=== PATIENT | female | born 1980 | race American Indian/Alaskan Native ===

== ENCOUNTER 2017-02-02 15:07 | Emergency (ER) | payer MEDICAID ==
[2017-02-02] MEDS ORDERED: cefOXitin IV 2 gm in Dextrose 2 GM/50 ML BAG IVPB ONE (15:27)
[2017-02-02] MEDS ORDERED: Lactated Ringer's 1,000 ML IV SCH (15:30)
[2017-02-02] MEDS ORDERED: Oxytocin 20 units in LR 0 ML IV ONE ×2 (15:39→16:35)
[2017-02-02] MEDS ORDERED: Sodium Citrate/Citric Acid 15 ml Sol ONE (15:39)
[2017-02-02 16:26] LABS: BASO % 0.1 % (0.0-2.0); EOS # 0.2 K/uL (0.0-0.7); EOS % 1.7 % (0.0-4.0); HEMATOCRIT 31.7 % (34.0-47.0); LYMPH # 2.5 K/uL (1.0-4.3); LYMPH % 22.9 % (20.0-40.0); MEAN CELL VOLUME 86.4 fL (81.0-99.0); MEAN CORPUSCULAR HEMOGLOBIN 29.1 pg (27.0-31.0); MEAN CORPUSCULAR HGB CONC 33.6 g/dL (33.0-37.0); MEAN PLATELET VOLUME 8.3 fL (7.2-11.7); MONO # 0.8 K/uL (0.0-0.8); MONO % 7.2 % (0.0-10.0); RED CELL DISTRIBUTION WIDTH 14.3 % (11.5-14.5); WHITE BLOOD COUNT 10.8 K/uL (4.8-10.8)
[2017-02-02 17:35] LABS: RBC URINE 1 /hpf (0-3); URINE BACTERIA RARE (<OCC); URINE BILIRUBIN NEGATIVE (NEGATIVE); URINE BLOOD NEGATIVE (NEGATIVE); URINE COLOR Yellow (YELLOW); URINE GLUCOSE (UA) NORMAL (Normal); URINE KETONE TRACE mg/dL (NEGATIVE); URINE LEUKOCYTE ESTERASE NEG Leu/uL (Negative); URINE PROTEIN NEGATIVE (NEGATIVE); URINE UROBILINOGEN NORMAL mg/dL (0.2-1.0); WBC URINE < 1 /hpf (0-5)
--- NOTE | 2017-02-02 17:45 | OBDCSUM ---
Datetime: 02/02/2017 17:42 Discharged to, Provider: Home Follow up at, Provider: dr dawn Disch Instr Activity: Normal activity Disch Instr Diet: Regular Discharge Time: 02/02/2017 17:43 Follow up in weeks, Provider: 1day Disch Referrals: None Discharge Comment, Provider: no sex po hyration pttl given f/u in 1day Discharge Diagnosis Prov Other: 36weks preteterm ctxs
== END 2017-02-02 17:42 | disposition home or self-care (01) ==
LOC: C.EROB 15:07 → UNDOADMIN 15:28 → C.4D 15:28 → C.EROB 17:42
DX: O60.03 Preterm labor without delivery, third trimester (principal); Z3A.36 36 weeks gestation of pregnancy
CPT/HCPCS: 81001; 85025; 96372; 99283; J3105; J7120

== ENCOUNTER 2017-02-17 06:13 | Inpatient (IN) | payer MEDICAID ==
[2017-02-17] MEDS ORDERED: cefOXitin IV 2 gm in Dextrose 2 GM/50 ML BAG IVPB ONE ×2 (06:36→07:45)
[2017-02-17 07:10] LABS: BASO % 0.3 % (0.0-2.0); EOS # 0.2 K/uL (0.0-0.7); EOS % 1.7 % (0.0-4.0); HEMOGLOBIN 9.9 g/dL (11.0-16.0); LYMPH % 27.6 % (20.0-40.0); MEAN CELL VOLUME 85.8 fL (81.0-99.0); MEAN CORPUSCULAR HEMOGLOBIN 28.4 pg (27.0-31.0); MEAN CORPUSCULAR HGB CONC 33.1 g/dL (33.0-37.0); MEAN PLATELET VOLUME 8.5 fL (7.2-11.7); MONO # 0.8 K/uL (0.0-0.8); MONO % 7.8 % (0.0-10.0); NEUT # 6.8 K/uL (1.8-7.0); NEUT % 62.6 % (50.0-75.0); NRBC % 0.1 % (0.0-2.0); RBC 3.49 Mil/uL (3.80-5.20); RED CELL DISTRIBUTION WIDTH 14.7 % (11.5-14.5); WHITE BLOOD COUNT 10.8 K/uL (4.8-10.8)
[2017-02-17 07:11] LABS: SQUAMOUS EPITHIAL 4 /hpf (0-5); URINE BACTERIA OCC (<OCC); URINE BILIRUBIN NEGATIVE (NEGATIVE); URINE BLOOD NEGATIVE (NEGATIVE); URINE CLARITY Clear (Clear); URINE COLOR Straw (YELLOW); URINE GLUCOSE (UA) NORMAL (Normal); URINE LEUKOCYTE ESTERASE NEG Leu/uL (Negative); URINE NITRATE NEGATIVE (NEGATIVE); URINE PROTEIN NEGATIVE (NEGATIVE); URINE UROBILINOGEN NORMAL mg/dL (0.2-1.0)
[2017-02-17] MEDS ORDERED: Phenylephrine 10 mg/ml Inj ONE (07:16)
[2017-02-17] MEDS ORDERED: Morphine 1 mg/ml preservative-free Inj(Duramorph) ONE (07:16)
[2017-02-17 07:36] LABS: ALBUMIN 3.2 g/dL (3.5-5.0)
[2017-02-17 07:39] LABS: AST/SGOT 23 U/L (14-36); BLOOD UREA NITROGEN 11 mg/dL (7-17); GFR AFRICAN-AMERICAN > 60; GFR NON-AFRICAN AMERICAN > 60
[2017-02-17 07:40] LABS: ALT/SGPT 18 U/L (9-52); CALCIUM 9.2 mg/dl (8.6-10.4)
[2017-02-17] MEDS ORDERED: Sodium Citrate/Citric Acid 15 ml Sol ONE (07:45)
[2017-02-17] MEDS ORDERED: Oxytocin 20 units in LR 2,000 ML IV ONE (07:46)
--- NOTE | 2017-02-17 13:51 | PCM.SURG1 ---
Surgeon's Initial Post Op Note - Surgeon's Notes Surgeon: Dr Ellis Laboratory Operations Coordinator: Dr Sandoval Type of Anesthesia: Spinal Anesthesia Administered By: Dr Henry Pre-Operative Diagnosis: IUP at 39wks, h/o previous extensive Myomectomy Operative Findings: Live female with BW of 3050gms and scores of 9 and 9 delivered in cephalic presentation with clear amniotic fluid and fundal placenta. There were multinodular fibroids in the uterus with multiple bowel adhesions to the posterior wall of the uterus which was carefully released after the repair of the uterine incision. Both ovaries and Fallopian tubes on either side appeared normal. EBL- 600mls. IVFluid intake- 2200mls. Urine Output- 400mls Post-Operative Diagnosis: 1. Same as Diagnosis. 2. Multinodular fibroid uterus. 3. Multiple bowel adhesions to the posterior wall of the uterus Operation Performed: Primary Section. Release of bowel and pelvic adhesions Specimen/Specimens Removed: Solitary fibroid nodule Estimated Blood Loss: EBL {In ML}: 600 Blood Products Given: N/A Post-Op Condition: Good Date of Surgery/Procedure: 02/17/17 Time of Surgery/Procedure: 09:30
[2017-02-17] MEDS: Simethicone 80 mg Chewtab PO SCH ×3 (14:48→21:58)
[2017-02-17] MEDS: cefOXitin IV 2 gm in Dextrose 2 GM/50 ML BAG IVPB SCH (15:47)
[2017-02-17] MEDS: Lactated Ringer's 1,000 ML IV SCH (16:46)
--- NOTE | 2017-02-17 22:28 | OBDS ---
DELIVERY PERSONNEL Delivery Doctor: Milind Ellis MD Scrub Nurse: Isha Matthews Intern Architect: Arlet Goetz RN Anesthesiologist: ophelia MATERNAL INFORMATION Delivery Anesthesia: Spinal Medications in Delivery: pitocin 20 Estimated Blood Loss (ml): 700 Placenta Cultured: No Maternal Complications: None Provider Comments: Uncomplicated Primary section with delivery of a viable female wi th BW of 3050gms and scores of 9 and 9. Multinodular Fibroids noted . EBL- 600mls LABOR SUMMARY EDC: 02/24/2017 00:00 No. Babies in Womb: 1 Attempted: No Labor Anesthesia: None LABOR INFORMATION Reason for Induction: Not Applicable Oxytocin: N/A Group B Beta Strep: Negative (Annotations: 06/26/2016) Antibiotics # of Doses: 1 Antibiotics Time of Last Dose: 750 Steroids Given: None Reason Steroids Not Administered: Not Applicable MEMBRANES Membranes Rupture Method: Artificial Rupture of Membranes: 02/17/2017 08:26 Length of Rupture (hrs): 0.02 Amniotic Fluid Color: Clear Amniotic Fluid Amount: Moderate Amniotic Fluid Odor: Normal STAGES OF LABOR Stage 3 hrs: 0 Stage 3 min: 1 VAGINAL DELIVERY Episiotomy: None Laceration Extension: N/A Laceration Type: None CSECTION DELIVERY Primary Indication: pc/s Secondary Indication: myomectomy CSection Urgency: Elective CSection Incidence: Primary Labor: No Labor Elective: Elective CSection Incision: Lower Uterine Transverse Uterine Closure: Double-layer closure BABY A INFORMATION Delivery Date/Time: 02/17/2017 08:27 Method of Delivery: Born in Route : No : N/A Forceps: N/A Vacuum Extraction: N/A Shoulder Dystocia : No SHOULDER DYSTOCIA BABY A Infant Delivery Date/Time: 02/17/2017 08:27 PRESENTATION/POSITION BABY A Presentation: Cephalic Cephalic Presentation: Vertex Breech Presentation: N/A PLACENTA INFORMATION BABY A Placenta Delivery Time : 02/17/2017 08:28 Placenta Method of Delivery: Manual Removal Placenta Status: Delivered SCORES BABY A Heart Rate 1 min: >100 bpm Resp Effort 1 min: Good Cry Reflex Irritability 1 min: Cough or Sneeze or Pulls Away Muscle Tone 1 min: Active Motion Color 1 min: Body [place], Extremities Blue Resuscitation Effort 1 min: Tactile Stimulation SCORE 1 MIN: 9 Heart Rate 5 min: >100 bpm Resp Effort 5 min: Good Cry Reflex Irritability 5 min: Cough or Sneeze or Pulls Away Muscle Tone 5 min: Active Motion Color 5 min: Body [place], Extremities Blue SCORE 5 MIN: 9 INFORMATION BABY A Gestational Age at Delivery: 39.0 Gestational Status: Term Outcome : Liveborn Condition : Stable Sex: Female IDENTIFICATION/MEDS BABY A ID Band Number: [id number] ID Band Location: Left Leg; Left Arm Sensor Applied: Yes Sensor Number: [id number] Sensor Location : Cord Clamp WEIGHT/LENGTH BABY A Birthweight (gms): 3050 Infant Weight (lb): 6 Weight (oz): 12 Infant Length Inches: 19.00 Infant Length cms: 48.3 CORD INFORMATION BABY A No. Cord Vessels: 3 Nuchal Cord : N/A Cord Blood Taken: Yes Infant Suction: Mouth; Nose ASSESSMENT BABY A Infant Complications: None Physical Findings at Delivery: Within Normal Limits Respirations: Appears Normal Batterboard Setter/ALS Called : No Infant Care By: dr kyle Transferred To: Remains with Mother
[2017-02-18] MEDS: cefOXitin IV 2 gm in Dextrose 2 GM/50 ML BAG IVPB SCH ×2 (00:50→07:55)
[2017-02-18] MEDS: Lactated Ringer's 1,000 ML IV SCH (00:59)
[2017-02-18] MEDS: Oxycodone/Acetaminophen 5/325 mg Tab PO PRN ×2 (06:01→18:08)
[2017-02-18 07:30] LABS: MEAN CELL VOLUME 85.9 fL (81.0-99.0); MEAN CORPUSCULAR HEMOGLOBIN 28.6 pg (27.0-31.0); MEAN CORPUSCULAR HGB CONC 33.3 g/dL (33.0-37.0); MEAN PLATELET VOLUME 8.6 fL (7.2-11.7); RBC 2.61 Mil/uL (3.80-5.20); RED CELL DISTRIBUTION WIDTH 14.6 % (11.5-14.5); WHITE BLOOD COUNT 14.6 K/uL (4.8-10.8)
[2017-02-18 07:43] LABS: HEMOGLOBIN 7.5 g/dL (11.0-16.0)
[2017-02-18] MEDS: Simethicone 80 mg Chewtab PO SCH ×4 (10:10→21:42)
[2017-02-18 16:41] VITALS: RESP 20
[2017-02-19] MEDS: Simethicone 80 mg Chewtab PO SCH ×4 (09:37→22:30)
[2017-02-19] MEDS: Oxycodone/Acetaminophen 5/325 mg Tab PO PRN (09:47)
--- NOTE | 2017-02-19 14:42 | OBPPN ---
Datetime: 02/19/2017 14:40 PP Pain Prov: Within normal limits PP Nausea Prov: Denies PP Flatus Prov: Yes PP Breasts Prov: Normal PP Heart Prov: Normal PP Lungs Prov: Normal PP Abdomen/Uterus Prov: Normal PP Lochia Prov: Normal PP Vulva/Perineum Prov: Normal PP CVA Tenderness Prov: Normal PP Extremities Prov: Normal PP Comments Phys Exam Prov: Abd: Soft, NT, BS- present Incision: Clean and dry PP Impression Prov: Normal progression PP Plan Prov: Continue present management PP Progress Note Prov: S/P Section, Clinically Stable Datetime: 02/18/2017 14:38 Vital Signs Provider PP: Reviewed
[2017-02-19] MEDS ORDERED: Aluminum Hydroxide/Magnesium Hydroxide Susp (30 mL) PO ONE (14:49)
--- NOTE | 2017-02-20 03:06 | OP ---
PROCEDURE DATE: 02/17/2017 PREOPERATIVE DIAGNOSES: Intrauterine at 39 weeks, history of previous extensive myomectomy, for section. POSTOPERATIVE DIAGNOSES: Intrauterine at 39 weeks, history of previous extensive myomectomy, for section. -Bowel adhesions. PROCEDURE: Primary section with release of bowel and pelvic adhesions. SURGEON: Jules Ellis MD MACHINE ETCHER: Dr. Overton. Associate Professor Of Sociology for this procedure was needed for exposure of tissues and helping in the delivery of the baby. The casino assistant manager remained with the surgery throughout its entire length. TYPE OF ANESTHESIA: Spinal. ANESTHESIA ADMINISTERED BY: Dr. Henry. FINDINGS: A live female infant with birthweight of 1350 g. scores of 9 in first and fifth minutes respectively. The baby was delivered in cephalic presentation with clear amniotic fluid and fundal placenta. There was multinodular fibroid uterus of that in the uterus with multiple bowel adhesions in the posterior wall of the uterus. These were carefully released after the repair of the uterine incision. Both ovaries and fallopian tubes on either sides appeared normal. IV FLUID INTAKE: 2200 mL. ESTIMATED BLOOD LOSS: 600 mL. URINE OUTPUT: About 400 mL COMPLICATIONS: There were no complications. SPECIMEN: Solitary fibroid nodule on the anterior fundal portion of the uterus which came out during the procedure. DESCRIPTION OF PROCEDURE: After obtaining informed consent, the patient was sent to the OR with IV running and Mohr catheter in place. The patient was placed in the supine position on the OR table. She was laid up, tied up, and adequate spinal anesthesia was placed, in the supine position with a left lateral tilt. The patient was then prepped and draped in the sterile fashion. A Pfannenstiel skin incision was made using a scalpel and this was made through the old incisional scar. The incision was carried through the subcutaneous tissues through the rectus muscle, which was divided with a Bovie device and extended to both sides by means of Millan scissors. The rectus fascia was then from the underlying rectus muscles, both superiorly and inferiorly by means of blunt dissection and sharp dissection. The rectus muscle was in the midline to expose the peritoneum, which was tented with 2 Katie clamps and carefully entered from the cephalic region of the incision. The abdominal cavity was entered with good visualization of the bladder. The bladder was drawn up over the lower uterine segment. The bladder flap was developed and retracted inferiorly to expose the lower uterine segment. At this point, multiple fibroid nodules were felt on the anterior wall of the uterus. The size is ranging from 1 cm to about 5 cm. A low-transverse incision was made using the scalpel. This was sent through the myometrial layer where amniotic membranes were identified. The incision was extended to both sides by means of a blunt dissection. The baby, which was in cephalic presentation was delivered after rupturing the amniotic membranes with the pickup forceps . The baby was delivered and the mouth and nostrils were bulb suctioned. The three-vessel umbilical cord was clamped and cut and the baby was given to the nurse. Cord blood was obtained for analysis and the placenta was manually removed from the uterine cavity. The uterus was then brought out of the abdominal cavity. Once bringing the uterus out, it was realized that there were multiple bowel adhesions from different sections above the posterior wall of the uterus. These were carefully debrided using the Metzenbaum scissors from the posterior wall of the uterus. The bleeding surfaces were closed using 3-0 plain gut. The uterine cavity was cleaned of all debris using dry laparotomy buds. The uterine incision was closed in two layers using Vicryl #4. The first layer in a [id number] fashion and the second layer in a running fashion imbricating the first layer. This was conducted until hemostasis was achieved. After completing the repair of the uterine incision, further separation of the bowel, especially the large intestine from the right was right half of the posterior uterus was also conducted carefully using Metzenbaum scissors to separate the fibrinous adhesions to the posterior wall. Once these have been completed, the bleeding surfaces were treated with the Surgicel and the posterior cul-de-sac was irrigated with normal saline. The uterus was returned to the abdominal cavity and the uterine incision site was also irrigated and reinspected for hemostasis. Once hemostasis was noted, attention was turned to the anterior abdominal wall, which was closed in layers with 2-0 Vicryl for the peritoneum and the rectus muscles. The rectus fascia was re-approximated using Vicryl #*4. The subcutaneous tissues were brought together using #2-0 plain. The skin was closed in the subcuticular fashion using #4-0 Vicryl. All counts of instruments, laparotomy pads, and needles used were correct x3 and the patient was sent to the recovery room awake and in stable condition. The patient tolerated the procedure well. Jules Ellis MD MTDD
[2017-02-20] MEDS: Simethicone 80 mg Chewtab PO SCH ×3 (09:59→17:12)
--- NOTE | 2017-02-20 12:46 | OBPPN ---
Datetime: 02/20/2017 12:42 PP Pain Prov: Within normal limits PP Nausea Prov: Denies PP Flatus Prov: Yes PP Breasts Prov: Normal PP Heart Prov: Normal PP Lungs Prov: Normal PP Abdomen/Uterus Prov: Normal PP Lochia Prov: Normal PP Vulva/Perineum Prov: Normal PP CVA Tenderness Prov: Normal PP Extremities Prov: Normal PP C/S Incision Prov: Normal PP Progress Prov: Normal PP Impression Prov: Normal progression PP Plan Prov: Discharge PP Progress Note Prov: S/P Primary Section, Clinically Stable Plan: D/c Home.
--- NOTE | 2017-02-20 12:51 | OBDCSUM ---
Datetime: 02/20/2017 12:48 Discharged to, Provider: Home Follow up at, Provider: Dr Ellis Disch Instr Activity: Normal activity Disch Instr Diet: Regular Discharge Instructions, Provider: Routine instructions given Discharge Diagnosis, Provider: Term Delivered Discharge Time: 02/20/2017 12:48 Follow up in weeks, Provider: 2 weeks Disch Referrals: None Contraception discussed, Prov: Yes Discharge Comment, Provider: S/P uncomplicated Section, Clinically Stable. Discharge Diagnosis Prov Other: S/P uncomplicated Section, Clinically Stable.
[2017-02-20 16:43] VITALS: BP 121/76; TEMP 97.7; O2SAT 97
[2017-02-20 21:29] VITALS: PULSE 96
== END 2017-02-20 17:29 | disposition home or self-care (01) | DRG 469 ==
LOC: C.4D 06:13 → C.4M 11:28
PROVIDERS: ADMIT Obstetrics & Gynecology; ATTEND Obstetrics & Gynecology
PROC: 10D00Z1 Extraction of Products of Conception, Low, Open Approach (ICD-10-PCS; principal; 2017-02-17)
PROC: 0DNE0ZZ Release Large Intestine, Open Approach (ICD-10-PCS; 2017-02-17)
PROC: 0DNW0ZZ Release Peritoneum, Open Approach (ICD-10-PCS; 2017-02-17)
DX: O99.89 Other specified diseases and conditions complicating pregnancy, childbirth and the puerperium (principal); N73.6 Female pelvic peritoneal adhesions (postinfective); Z3A.39 39 weeks gestation of pregnancy; Z37.0 Single live birth; O34.13 Maternal care for benign tumor of corpus uteri, third trimester

== ENCOUNTER 2018-10-08 09:07 | Emergency (ER) | payer MEDICAID, OTHER ==
[2018-10-08 09:17] VITALS: RESP 18; BMI 26.5
--- NOTE | 2018-10-08 09:25 | C.PDOC ---
History Of Present Illness 37 yo female, no prior hx, presnts with b/l arm pain. states "she has been having shooting pains" in b/l arms. no known trauma. no fevers, no cough, no rhinnorhea, no urinary changes. ambulatory into [facility] in nad. on phone in nad. Time Seen by Provider: 10/08/18 09:22 Chief Complaint (Nursing): Upper Extremity Problem/Injury Past Medical History Reviewed: Historical Data, Nursing Documentation, Vital Signs Vital Signs: Last Vital Signs Temp 98.6 F 10/08/18 09:10 Pulse 94 H 10/08/18 09:10 Resp 18 10/08/18 09:10 BP 110/77 10/08/18 09:10 Pulse Ox 100 10/08/18 09:10 - Medical History PMH: Bronchitis Denies: Depression, Diabetes, HTN Surgical History: Tonsillectomy - [facility] EXTRACTION OF POC, LOW CERVICAL, OPEN APPROACH (02/17/17) RELEASE LARGE INTESTINE, OPEN APPROACH (02/17/17) RELEASE PERITONEUM, OPEN APPROACH (02/17/17) Family History: States: Unknown Family Hx - Social History Hx Tobacco Use: No Hx Alcohol Use: No Hx Substance Use: No - Immunization History Hx Tetanus Toxoid Vaccination: No Hx Influenza Vaccination: Yes Hx Pneumococcal Vaccination: No Review Of Systems Musculoskeletal: Positive for: Arm Pain Neurological: Positive for: Other Physical Exam - Physical Exam Appears: Well, No Acute Distress Skin: Normal Color, Warm, Dry Eye(s): bilateral: Normal Inspection, PERRL, EOMI Nose: Normal Throat: Normal Neck: Normal Cardiovascular: Rhythm Regular Respiratory: Normal Breath Sounds Gastrointestinal/Abdominal: Normal Exam, Soft, No Tenderness, No Guarding, No Rebound Back: Normal Inspection Extremity: Normal ROM Neurological/Psych: Oriented x3, Normal Cognition, Normal Cranial Nerves, No Cerebellar Signs, Normal Motor, Normal Sensation ED Course And Treatment - Laboratory Results Result Diagrams: 10/08/18 09:41 10/08/18 09:41 O2 Sat by Pulse Oximetry: 100 Medical Decision Making Medical Decision Making: ?body pain/neuropathic pain - r/o metabolic abnomrality in er, pt in nad. labs neg. no leukoctyosisno thorasic vertebral ttp. neuor intac.t steady gait unlike epidural abscess. advise outp tfu return precautions Disposition - Disposition Disposition: HOME/ ROUTINE Disposition Time: 10:00 Condition: STABLE Additional Instructions: please see your doctor/clinic. you may need further workup as an outpatient to determine the etiology o fyour symptoms. return to any er with worsenign. Prescriptions: Naproxen [Naprosyn] 500 mg PO BID PRN #14 tab PRN Reason: Pain, Mild (1-3) Instructions: Peripheral Neuropathy, Hand Pain (DC) Forms: [facility] (Cam[place]onian) - Clinical Impression Clinical Impression: Arm pain
[2018-10-08 09:50] LABS: BASO % 0.3 % (0.0-2.0); EOS # 0.2 K/uL (0.0-0.7); HEMOGLOBIN 10.4 g/dL (11.0-16.0); LYMPH # 2.4 K/uL (1.0-4.3); MEAN CELL VOLUME 84.7 fL (81.0-99.0); MEAN CORPUSCULAR HEMOGLOBIN 27.8 pg (27.0-31.0); MEAN CORPUSCULAR HGB CONC 32.9 g/dL (33.0-37.0); MEAN PLATELET VOLUME 7.2 fL (7.2-11.7); MONO # 0.4 K/uL (0.0-0.8); MONO % 6.1 % (0.0-10.0); NEUT # 3.9 K/uL (1.8-7.0); NEUT % 56.6 % (50.0-75.0); NRBC % 0.1 % (0.0-2.0); RBC 3.73 Mil/uL (3.80-5.20); RED CELL DISTRIBUTION WIDTH 14.4 % (11.5-14.5)
[2018-10-08 10:00] LABS: HCG,QUALITATIVE URINE NEGATIVE (NEGATIVE)
[2018-10-08 10:02] LABS: SQUAMOUS EPITHIAL 2 /hpf (0-5); URINE BACTERIA RARE (<OCC); URINE BILIRUBIN NEGATIVE (NEGATIVE); URINE BLOOD 2+ (NEGATIVE); URINE CLARITY Clear (Clear); URINE COLOR Yellow (YELLOW); URINE GLUCOSE (UA) NORMAL (Normal); URINE LEUKOCYTE ESTERASE NEG Leu/uL (Negative); URINE PROTEIN NEGATIVE (NEGATIVE); URINE UROBILINOGEN NORMAL mg/dL (0.2-1.0)
[2018-10-08 10:02] LABS: ALB/GLOB RATIO 1.4 (1.0-2.1); ALBUMIN 4.4 g/dL (3.5-5.0); ALT/SGPT 15 U/L (9-52); AST/SGOT 47 U/L (14-36); BLOOD UREA NITROGEN 17 mg/dL (7-17); CALCIUM 9.6 mg/dl (8.6-10.4); GFR NON-AFRICAN AMERICAN > 60
[2018-10-08 10:15] VITALS: BP 102/69; PULSE 78; TEMP 98.1
[2018-10-08 10:38] VITALS: O2SAT 100
== END 2018-10-08 10:25 | disposition home or self-care (01) ==
LOC: C.ER 09:07
DX: M79.602 Pain in left arm (principal); M79.601 Pain in right arm